=== PATIENT | female | born 1965 | race Caucasian/White ===

== ENCOUNTER 2017-02-04 17:46 | Emergency (ER) | payer BC ==
[2017-02-04] MEDS ORDERED: KETOROLAC TROMETHAMINE 30 MG/ML VIAL IM ONE (18:20)
[2017-02-04] MEDS ORDERED: KETOROLAC TROMETHAMINE 30 MG/ML VIAL ONE (18:24)
--- NOTE | 2017-02-04 18:27 | ERNOTE ---
Back Pain ER HPI Presenting Symptoms: injury/pain to back Time Seen by Provider: 02/04/17 18:05 Source: patient Exam Limitations: no limitations Immunizations: IMMUNIZATION HX Immunizations Up to Date Yes History of Influenza Vaccine Yes Hx Pneumococcal Vaccination Yes Allergies/Adverse Reactions: Allergies [place] Allergy (Severe, Verified 02/04/17 18:01) Anaphylaxis oxycodone HCl [From Percocet] Adverse Reaction (Mild, Verified 02/04/17 18:01) N/V Home Medications: HOME MEDICATIONS Lorazepam [Ativan] 2 mg PO HS 05/27/14 [Last Taken 05/26/14] Sertraline HCl [Zoloft] 100 mg PO HS 05/27/14 [Last Taken 05/26/14] Albuterol Sulfate [Proair Hfa] 2 puff IH Q4H PRN #1 inhaler 12/07/15 [Last Taken Unknown] Amox Tr/Potassium Clavulanate [Augmentin 875-125 Tablet] 875 mg PO DAILY [Last Taken Unknown] Cyclobenzaprine HCl [Flexeril] 10 mg PO TID PRN #30 tab 02/04/17 [Last Taken Unknown] Doxycycline Monohydrate [Monodox] 100 mg PO DAILY 02/04/17 [Last Taken Unknown] HYDROcodone/ACETAMINOPHEN [[place] 5-325] 1 each PO Q4H PRN #20 tablet 02/04/17 [ Last Taken Unknown] Narrative: Patient has had back pain for three month. She denies any injuries, has seen a chiropractor almost weekly with no persistent relieve, has tried ibuprofen and tylenol initially without relieve. The pain is in her right lower back, no radiation. She has a history of lymphoma, currently on remission for two years, is on maintenance chemo q 3 months, last dose last week Timing: Reports: getting worse Quality/Severity: Reports: severe Location of pain: Reports: lower back, no radiation Activities at Onset: Reports: none Recent Injury?: Reports: no Possible Precipitating Factor: Denies: lifting, turning/bending, fall/near fall , trauma Modifying Factors - (Improves): Reports: nothing Modifying Factors - (Worsens): Reports: movement to right, movement to left, cough/deep breaths Associated Symptoms: Denies: fever/chills, sweating, constipation/incontinence, nausea/vomiting, problems urinating, difficulty walking, numbess/weakness in legs Prior Treament: Denies: recently seen, similar symptoms before Review of Systems - Review of Systems Constitutional: Absent: recent illness, fever ENT: Absent: nose congestion, sore throat Respiratory: Present: cough - baseline. Absent: shortness of breath Cardiology: Absent: chest pain Gastrointestinal/Abdominal: Absent: nausea, vomiting, abdominal pain Genitourinary: Present: no symptoms reported. Absent: frequency, dysuria Musculoskeletal: Present: See HPI, back pain Skin: Absent: rash Neurological: Absent: headache, weakness, numbness - Patient's Past Medical History Patient History - Medical: Anxiety, Depression Patient History - Cardiac/Respiratory: COPD Patient History - Cancer: Lymphoma, Chemotherapy history Patient History - Surgical Procedures: Appendectomy, Cholecystectomy, Colonoscopy, EGD, Other Patient History - Other: None LMP (females 10-50): 35 years ago - Family History Mother Family History - Medical: Family History - Cardiac/Respiratory: CVA/Stroke Father Family History - Cardiac/Respiratory: Myocardial Infarction - Social History Living Situations: home Abuse History: No History of abuse Psych History: Hx of Anxiety, Hx of Depression, Current tx/ever been on anti- depressants or anti-anxiety meds Smoking Status: Current every day smoker Alcohol Use: occasionally Drug Use: none - Immunizations Immunizations Up to Date: Yes Hx Pneumococcal Vaccination: Yes History of Influenza Vaccine: Yes Physical Exam - Physical Exam General Appearance: Present: wd/wn, alert, mild distress Neck: Present: normal inspection, nontender Respiratory: Present: no respiratory distress, no accessory muscle use, lungs clear, decreased breath sounds Cardiovascular/Chest: Present: regular rate, rhythm, no murmur Back Exam: Present: normal inspection, no vertebral tenderness, muscle spasm - right lower lumbar, other - pain on straigt leg raise Extremity Exam: Present: normal inspection, no edema Neurological Exam: Present: alert, oriented, normal mood/affect, no motor/ sensory deficits Skin Exam: Present: normal color, warm/dry ED Progress - Vital Signs Patient's Vital Signs:: I have reviewed the patient's vital signs. Vital Signs: Vital Signs 02/04/17 17:54 Temperature 36.6 C Pulse Rate 63 Respiratory 15 Rate Blood Pressure 126/71 O2 Sat by Pulse 100 Oximetry - X-Ray X-Ray #1 X-Ray: lumbosacral - DJD, no fracture Interpretation: Interp. by me - Progress/Reassessment Chief Complaint: Back Pain Progress Note-Subjective: 02/04/17 19:05 no significant pain relieve yet, discussed test results Departure Clinical Impression: Sciatica Qualifiers: Laterality: right Qualified Code(s): M54.31 - Sciatica, right side - Departure Disposition: Home self-care Condition: Good Instructions: Sciatica, [id number] Additional Instructions: call your doctor for further testing, you might benefit from having an MRI of your back Referrals: Gregg Craig DO [Primary Care Provider] - Prescriptions: Cyclobenzaprine HCl [Flexeril] 10 mg PO TID PRN #30 tab PRN Reason: MUSCLE SPASMS HYDROcodone/ACETAMINOPHEN [[place] 5-325] 1 each PO Q4H PRN #20 tablet PRN Reason: Pain
[2017-02-04 19:15] VITALS: BP 123/70
== END 2017-02-04 19:10 | disposition home or self-care (01) ==
LOC: ER 17:46
DX: M54.31 Sciatica, right side (principal); F17.200 Nicotine dependence, unspecified, uncomplicated; F32.9 Major depressive disorder, single episode, unspecified; F41.9 Anxiety disorder, unspecified; Z85.72 Personal history of non-Hodgkin lymphomas; Z92.21 Personal history of antineoplastic chemotherapy

== ENCOUNTER 2017-03-01 09:07 | Day surgery (SDC) | payer BC ==
--- NOTE | 2017-03-01 10:03 | OR ---
Anesthesia Pre Procedure Eval Date of Service: 03/01/17 Pre Procedure Evaluation: Last Vital Signs Temp 36.8 C 03/01/17 09:14 Pulse 68 03/01/17 09:14 Resp 18 03/01/17 09:14 BP 112/62 03/01/17 09:14 Pulse Ox 100 03/01/17 09:14 Anesthesia Pre Procedure Evaluation DATE: 03/01/2017 TIME: 10 AM INDICATIONS: Lumbar disc bulge, right radicular pain. PAST MEDICAL HISTORY: Ms. Allen has had a history of intermittent radicular symptoms, however, she has had no previous radicular pain particularly to this extent until this last few weeks. She describes her pain as a sudden onset beginning in the right hip area radiating to the knee. She has had an injection directly into the area of discomfort which did offer relief for a matter of a few hours. She is scheduled for physical therapy, this is her first epidural steroid injection. History of GERD: No History of smoking: Yes Smoked prior to procedure: No History of sleep apnea: No EXAM: Heart S1-S2 regular; lungs clear bilaterally ASSESSMENT OF MEDICAL STATUS: Appropriate candidate for FIONA. PLANNED PROCEDURE: Lumbar epidural steroid injection L4 5 Home Medications: HOME MEDICATIONS Lorazepam [Ativan] 2 mg PO HS 05/27/14 [Last Taken 02/28/17] Sertraline HCl [Zoloft] 100 mg PO HS 05/27/14 [Last Taken 02/28/17] Acetaminophen with Codeine [Tylenol with Codeine #4 Tablet] 1 each PO Q4H PRN [Last Taken 02/28/17] Albuterol Sulfate [Proair Hfa] 1 - 2 puff IH Q4H PRN 02/28/17 [Last Taken ] Nabumetone 750 mg PO BID PRN 02/28/17 [Last Taken 02/28/17]
[2017-03-01] MEDS ORDERED: LIDOCAINE HCL/PF 5 ML VIAL IJ ONE (10:43)
[2017-03-01] MEDS ORDERED: IOPAMIDOL 20 ML VIAL IJ ONE (10:43)
[2017-03-01] MEDS ORDERED: DEXAMETHASONE SOD PHOSPHATE 10 MG/ML VIAL IJ ONE (10:43)
--- NOTE | 2017-03-01 10:53 | OR ---
Anesthesia Procedure Note - Anesthesia Procedure Note Date of Service: 03/01/17 Narrative: Vital Signs - Last Taken Temp 36.8 C 03/01/17 09:14 Pulse 58 L 03/01/17 10:35 Resp 16 03/01/17 10:35 BP 139/68 03/01/17 10:35 Pulse Ox 98 03/01/17 10:35 O2 Oxygen Delivery Method Room Air 03/01/17 10:48 ANESTHESIA PROCEDURE NOTE Date of Procedure: 03/01/2017 Time of procedure: 10:34 AM. Performed by: Carlton Juarez CRNA, DIRECTOR WORKFORCE MANAGEMENT, MSN Event Sales Assistant: Felicitas Duran RN. Preprocedure diagnosis: This bulge L4 5 right, right radicular pain. Post procedure diagnosis: Same. Procedure: Epidural Steroid Injection L4 5 right. Indications: Right radicular pain. Findings: See below. Details of the procedure: After the MRI report and films were reviewed, the patient was interviewed where risks and the procedure were explained. The patient was then brought to over #4 and was placed in the prone position. The right buttock area was noted to have a rash which the patient described as a reaction to an injection she had last week. The rash was diffuse and blotchy covering perhaps a quarter of the buttock area with 2 sites but appeared to have scabs on.. He rated the risk of infection and considering the observation of her reaction to the gluteal injection that she was at high risk than most people for this. She voiced understanding and wished to proceed. The back was prepped with DuraPrep and draped in a sterile fashion. The lumbar area was identified under fluoroscopy and the L4 5 right space was localized with 1% lidocaine solution. The epidural space was identified using loss of resistance technique using a #20-gauge Touhy needle. 1 mL of Isovue was injected while the C-arm was positioned in the lateral orientation. The C-arm was then readjusted to an AP view and Isovue 200 1 milliliters was injected demonstrating a spread at the affected area. Dexamethasone 10mg and lidocaine 1 % 5 mL was injected, stylette was replaced and the epidural needle removed. A Band-Aid was then applied to the injection site, patient was placed in a supine position for 5 minutes then returned to ASU with good relief of pain, from a 3/ 10 to 1/10, barely noticeable. EBL: None. Energy: 9.7 Seconds, 2.05 mGy Fluids: N/A. Specimen: N/A. Post procedure condition: The patient tolerated the procedure well. No complications were noted. Thank you for this consultation. Carlton Juarez CRNA, MSN, DIRECTOR WORKFORCE MANAGEMENT
[2017-03-01 11:27] VITALS: BP 121/66
== END 2017-03-01 09:08 | disposition home or self-care (01) ==
LOC: AMB 09:07
PROVIDERS: ATTEND Family Medicine
PROC: 3E0R33Z Introduction of Anti-inflammatory into Spinal Canal, Percutaneous Approach (ICD-10-PCS; 2017-03-01)
PROC: B01BZZZ Fluoroscopy of Spinal Cord (ICD-10-PCS; 2017-03-01)
PROC: 3E0R3BZ Introduction of Anesthetic Agent into Spinal Canal, Percutaneous Approach (ICD-10-PCS; principal; 2017-03-01 08:00)
DX: M51.26 Other intervertebral disc displacement, lumbar region (principal); Z68.21 Body mass index [BMI] 21.0-21.9, adult